=== PATIENT | male | born 1935 | race Caucasian/White ===

== ENCOUNTER → 2019-06-12 | Outpatient (CLI) | payer OTHER ==
[~2019-06-12] MED LIST: AMIODARONE CV KI1 E1 PO; ASPIRIN325 PO; BENICAR20 MG PO; COUMADIN 5 MG TA5 M1 PO; GLUCOPHAGE1000 MG PO; LASIX 40 MG TAB40 M1 PO; LOPRESSOR PO; LOPRESSOR100 M1 PO; NAPROSYN500 MG PO; NORCO 5-325 TA1 EACH PO; POTASSIUM20 PO; TOPROL XL100 MG PO
== END ==
LOC: SJCVC 15:17 → SJCVCIMAG 15:17
DX: I08.8 Other rheumatic multiple valve diseases (principal); R94.31 Abnormal electrocardiogram [ECG] [EKG]; I11.0 Hypertensive heart disease with heart failure; I50.33 Acute on chronic diastolic (congestive) heart failure; I48.91 Unspecified atrial fibrillation; I42.9 Cardiomyopathy, unspecified; G47.33 Obstructive sleep apnea (adult) (pediatric)

== ENCOUNTER → 2019-06-27 | Outpatient (CLI) | payer OTHER | LOC: SJCVCIMAG 06-22 12:05 | DX: R94.31 Abnormal electrocardiogram [ECG] [EKG] (principal); N28.1 Cyst of kidney, acquired; I13.0 Hypertensive heart and chronic kidney disease with heart failure and stage 1 through stage 4 chronic kidney disease, or unspecified chronic kidney disease; N18.3 Chronic kidney disease, stage 3 (moderate); I50.33 Acute on chronic diastolic (congestive) heart failure; E78.00 Pure hypercholesterolemia, unspecified; I48.91 Unspecified atrial fibrillation; I42.9 Cardiomyopathy, unspecified; R06.02 Shortness of breath ==